=== PATIENT | male | born 1995 | race Hispanic/Latino ===

== ENCOUNTER 2018-12-01 00:05 | Emergency (ER) | payer OTHER ==
[2018-12-01] MEDS ORDERED: IBUPROFEN 600 MG TABLET ONE (00:27)
[2018-12-01] MEDS ORDERED: ACETAMINOPHEN EXTRA STRENGTH 500 MG TABLET ONE (00:27)
[2018-12-01 00:58] LABS: RAPID GROUP A STREP NEGATIVE (NEGATIVE)
== END 2018-12-01 01:18 ==
LOC: EDH 00:05
DX: J06.9 Acute upper respiratory infection, unspecified (principal)
CPT/HCPCS: 87804; 87880